=== PATIENT | female | born 1985 | race Caucasian/White ===

== ENCOUNTER 2017-12-05 22:28 | Inpatient (IN) | payer MEDICAID ==
[2017-12-05] MEDS ORDERED: Mineral Oil 10 ML Bottle ONE (22:39)
[2017-12-05] MEDS ORDERED: Naloxone 0.4 MG/ML SDV ONE (22:40)
[2017-12-05] MEDS ORDERED: Lidocaine 1% 50 ML MDV ONE (22:40)
[2017-12-05] MEDS ORDERED: Oxytocin 10 Units/1 ML SDV ONE (22:51)
[2017-12-05] MEDS ORDERED: Ondansetron 4 MG Tab.DIS PO PRN (23:03)
[2017-12-05] MEDS ORDERED: Sodium Chloride 0.9% 10 ML Syringe FLUSH PRN (23:03)
--- NOTE | 2017-12-05 23:13 | PCM.LDHP ---
L&D History of Present Illness - General Date of Service: 12/05/17 (active labor) Admit Problem/Dx: Patient Status Order with Admit Dx/Problem 12/05/17 23:03 Patient Status [ADT] Routine Admission Diagnosis/Problem Admission Diagnosis/Problem Labor established Source of Information: Patient History Limitations: Reports: No Limitations - History of Present Illness Introduction:: This 32 year old AB 1 L 2 who is 39 5/7 weeks gestation presents for contractions that are regular and intense. Onset at 2012 and getting stronger. Wants a drug free delivery. Had GBS pos with last , Negative this time. OCTAVIO 12/07/17. adequate care. CE 80/+2 no leaking of fluid. Labs ABO AB pos Rubella immune HIV neg GBS neg. Timing/Duration: Reports: minutes: (3) Location, : Reports: Abdomen, Lower back Quality: Reports: Pressure Severity: Severe Improves with: Reports: Movement Worsens with: Reports: None - Related Data Allergies/Adverse Reactions: Allergies Allergy/AdvReac Type Severity Reaction Status Date / Time No Known Allergies Allergy Verified 06/14/15 22:12 Past Medical History - Past Health History Medical/Surgical History: Denies Medical/Surgical History : 5 Para: 3 (2 living children) LMP (Approximate): (OCTAVIO 12/07/17) H&P Review of Systems - Review of Systems: Review Of Systems: See Below General: Reports: No Symptoms HEENT: Reports: No Symptoms Pulmonary: Reports: No Symptoms Cardiovascular: Reports: No Symptoms Gastrointestinal: Reports: No Symptoms Genitourinary: Reports: No Symptoms Musculoskeletal: Reports: No Symptoms Skin: Reports: No Symptoms Psychiatric: Reports: No Symptoms Neurological: Reports: No Symptoms Hematologic/Lymphatic: Reports: No Symptoms Immunologic: Reports: No Symptoms L&D Exam - Exam Exam: See Below - Vital Signs Vital Signs: Last Vital Signs Temp 97.1 F 12/05/17 22:52 Pulse 102 H 12/05/17 22:52 Resp 98 H 12/05/17 22:52 BP 103/76 12/05/17 22:52 Pulse Ox - OB Specific Contraction Frequency (min): 2 Contraction Intensity: Strong Movement: Active Heart Tones: Present Heart Tones per Min: 125 Presentation: Vertex Estimated Weight: 7-8 pounds - Sanchez Score Sanchez Score Cervix Position: Midposition Sanchez Score Consistency: Soft Sancehz Score Effacement: >80% Sanchez Score Dilation: 3-4 cm Sanchez Score Infant's Station: +1, +2 Sanchez Score Total: 11 - Exam General: Alert, Oriented HEENT: PERRLA, Mucosa Moist & [place] Neck: Supple Lungs: Clear to Auscultation Cardiovascular: Regular Rhythm GI/Abdominal Exam: Soft Genitourinary: Normal external exam Back Exam: Normal Inspection Extremities: Normal Inspection, No Pedal Edema Skin: Warm Neurological: Cranial Nerves Intact Psychiatric: Alert - Patient Data Lab Results Last 24 hrs: Laboratory Results - last 24 hr 12/05/17 12/05/17 Range/Units 22:37 22:42 WBC 10.5 (4.5-11.0) K/uL RBC 3.87 (3.30-5.50) M/uL Hgb 12.0 (12.0-15.0) g/dL Hct 34.6 L (36.0-48.0) % MCV 89 (80-98) fL MCH 31 (27-31) pg MCHC 35 (32-36) % Plt Count 146 L (150-400) K/uL Neut % (Auto) 74 H (36-66) % Lymph % (Auto) 18 L (24-44) % [place] % (Auto) 8 H (2-6) % Eos % (Auto) 1 L (2-4) % Baso % (Auto) 0 (0-1) % Urine Opiates Screen Negative (NEGATIVE) Ur Oxycodone Screen Negative (NEGATIVE) Urine Methadone Screen Negative (NEGATIVE) Ur Propoxyphene Screen Negative (NEGATIVE) Ur Barbiturates Screen Negative (NEGATIVE) Ur Tricyclics Screen Negative (NEGATIVE) Ur Phencyclidine Scrn Negative (NEGATIVE) Ur Amphetamine Screen Negative (NEGATIVE) U Methamphetamines Scrn Negative (NEGATIVE) Urine MDMA Screen Negative (NEGATIVE) U Benzodiazepines Scrn Negative (NEGATIVE) U Cocaine Metab Screen Negative (NEGATIVE) U Marijuana (THC) Screen Negative (NEGATIVE) Result Diagrams: 12/05/17 22:37 - Problem List (1) SNOMED Code(s): 91074893 ICD Code: Z34.90 - ENCNTR FOR SUPRVSN OF NORMAL , UNSP, UNSP TRIMESTER Status: Acute Current Visit: Yes Qualifiers: Weeks of gestation: 39 weeks Qualified Code(s): Z3A.39 - 39 weeks gestation of (2) Active labor at term SNOMED Code(s): 98375316 ICD Code: [id number] - Status: Acute Current Visit: Yes Problem List Initiated/Reviewed/Updated: Yes Orders Last 24hrs: Active Orders 24 hr Category Date Time Status Patient Status [ADT] Routine ADT 12/05/17 23:03 Ordered Antiembolic Devices [RC] .Routine Care 12/05/17 23:06 Ordered Communication Order [RC] ASDIRECTED Care 12/05/17 23:03 Ordered Heart Tones [RC] PER UNIT ROUTINE Care 12/05/17 23:03 Ordered May Shower [RC] ASDIRECTED Care 12/05/17 23:03 Ordered Notify Provider Vital Signs [RC] PRN Care 12/05/17 23:03 Ordered Notify Provider [RC] PRN Care 12/05/17 23:03 Ordered Up ad Radha [RC] ASDIRECTED Care 12/05/17 23:03 Ordered VTE/DVT Education [RC] Click to Edit Care 12/05/17 23:06 Ordered Vital Signs [RC] PER UNIT ROUTINE Care 12/05/17 23:03 Ordered UA W/MICROSCOPIC [URIN] Routine Lab 12/05/17 22:42 Ordered Acetaminophen [Tylenol] Med 12/05/17 23:03 Ordered 650 mg PO Q4H PRN Ondansetron [Zofran ODT] Med 12/05/17 23:03 Ordered 4 mg PO Q4H PRN Sodium Chloride 0.9% [Saline Flush] Med 12/05/17 23:03 Ordered 10 ml FLUSH ASDIRECTED PRN DVT/VTE Prophylaxis Reflex [OM.PC] Routine Oth 12/05/17 23:03 Ordered Saline Lock Insert [OM.PC] Routine Oth 12/05/17 23:03 Ordered Resuscitation Status Routine Resus Stat 12/05/17 23:03 Ordered Assessment/Plan Comment:: 32 yr old AB 1 L2 who is 39 5/7 weeks gestation in active labor. pain management per patient request Plan for vaginal delivery. HGB 12 PLT 146
[2017-12-06] MEDS: Ibuprofen 800 MG Tab PO PRN ×3 (02:45→19:31)
--- NOTE | 2017-12-06 03:22 | PCM.DEL ---
L & D Note - General Info Date of Service: 12/06/17 (delivery) Mother's Due Date: 12/07/17 - Delivery Note Labor: Spontaneous Delivery Outcome: Livebirth Infant Delivery Method: Spontaneous Vaginal Delivery-Single Infant Delivery Mode: Spontaneous Presentation: Right Occiput Anterior (LARRY) Nuchal Cord: None Anesthesia Type: None Amniotic Fluid Description: Clear Episiotomy Type: None Laceration: Perineal (skild jere, she declined repair, not bleeding) Placenta: Intact, Spontaneous Cord: 3 Vessels Estimated Blood Loss: 100 Resuscitation Needed: No [place]: Bulb Syringe, Stimulated, Warmed, [place] Used Provider: Lizzy Morales Score 1 min: 8 Score 5 min: 9 Second Stage Interventions: Reports: Pushing Effectively Delivery Comments (Free Text/Narrative):: 12/06/17 32 year old G5 now P4 AB1 L3 who is 39 6/7 delivered at 0239 a viable female over an intact perineum in LARRY position. The was delivered onto mother's abdomen where she was dried and stimulated. She cried spontaneously and had Apgars of 8 and 9. Three vessel cord. The placenta was expressed spontaneously intact, [place]. There was a skid jere perineal abrasion which Sandrine chose not to have repaired, it wasn't bleeding. no other lacerations of the cervix, vagina or rectum were found. EBL 100 cc Mother and baby to post and nursery in stable condition. Weight 7 pounds, - General Info Date of Service: 12/06/17 Admission Dx/Problem (Free Text): Patient Status Order with Admit Dx/Problem 12/05/17 23:03 Patient Status [ADT] Routine Admission Diagnosis/Problem Admission Diagnosis/Problem Labor established Functional Status: Reports: Pain Controlled - Review of Systems General: Reports: No Symptoms HEENT: Reports: No Symptoms Pulmonary: Reports: No Symptoms Cardiovascular: Reports: No Symptoms Gastrointestinal: Reports: No Symptoms Genitourinary: Reports: No Symptoms Musculoskeletal: Reports: No Symptoms Skin: Reports: No Symptoms Neurological: Reports: No Symptoms Psychiatric: Reports: No Symptoms - Patient Data Vitals - Most Recent: Last Vital Signs Temp 97.1 F 12/05/17 22:52 Pulse 102 H 12/05/17 22:52 Resp 98 H 12/05/17 22:52 BP 103/76 12/05/17 22:52 Pulse Ox Lab Results Last 24 Hours: Laboratory Results - last 24 hr 12/05/17 12/05/17 12/05/17 Range/Units 22:37 22:42 22:42 WBC 10.5 (4.5-11.0) K/uL RBC 3.87 (3.30-5.50) M/uL Hgb 12.0 (12.0-15.0) g/dL Hct 34.6 L (36.0-48.0) % MCV 89 (80-98) fL MCH 31 (27-31) pg MCHC 35 (32-36) % Plt Count 146 L (150-400) K/uL Neut % (Auto) 74 H (36-66) % Lymph % (Auto) 18 L (24-44) % [place] % (Auto) 8 H (2-6) % Eos % (Auto) 1 L (2-4) % Baso % (Auto) 0 (0-1) % Urine Color Yellow Urine Appearance Slightly cloudy Urine pH 5.0 (4.5-8.0) Ur Specific [place] 1.030 (1.008-1.030) Urine Protein Negative (NEGATIVE) mg/dL Urine Glucose (UA) Normal (NEGATIVE) mg/dL Urine Ketones 50 H (NEGATIVE) mg/dL Urine Occult Blood Negative (NEGATIVE) Urine Nitrite Negative (NEGATIVE) Urine Bilirubin Negative (NEGATIVE) Urine Urobilinogen Normal (NORMAL) mg/dL Ur Leukocyte Esterase Negative (NEGATIVE) Urine RBC 0-5 (0-5) Urine WBC 0-5 (0-5) Ur Epithelial Cells Few Amorphous Sediment Urine Bacteria Moderate Urine Mucus Not seen Urine Opiates Screen Negative (NEGATIVE) Ur Oxycodone Screen Negative (NEGATIVE) Urine Methadone Screen Negative (NEGATIVE) Ur Propoxyphene Screen Negative (NEGATIVE) Ur Barbiturates Screen Negative (NEGATIVE) Ur Tricyclics Screen Negative (NEGATIVE) Ur Phencyclidine Scrn Negative (NEGATIVE) Ur Amphetamine Screen Negative (NEGATIVE) U Methamphetamines Scrn Negative (NEGATIVE) Urine MDMA Screen Negative (NEGATIVE) U Benzodiazepines Scrn Negative (NEGATIVE) U Cocaine Metab Screen Negative (NEGATIVE) U Marijuana (THC) Screen Negative (NEGATIVE) Med Orders - Current: Current Medications Acetaminophen (Tylenol) 650 mg PO Q4H PRN PRN Reason: Pain (Mild 1-3) and fever Ibuprofen (Motrin) 800 mg PO Q8H PRN PRN Reason: Pain Ondansetron HCl (Zofran Odt) 4 mg PO Q4H PRN PRN Reason: Nausea/Vomiting Sodium Chloride (Saline Flush) 10 ml FLUSH ASDIRECTED PRN PRN Reason: Keep Vein Open Discontinued Medications Oxytocin/Sodium Chloride (Pitocin In Ns 20 Units/1,000 Ml) Confirm Administered Dose 20 unit in 1,000 mls @ as directed .ROUTE .STK-MED ONE Stop: 12/05/17 22:41 Lidocaine HCl (Xylocaine 1%) Confirm Administered Dose 100 ml .ROUTE .STK-MED ONE Stop: 12/05/17 22:41 Mineral Oil (Muri-Lube) Confirm Administered Dose 10 ml .ROUTE .STK-MED ONE Stop: 12/05/17 22:40 Naloxone HCl (Narcan) Confirm Administered Dose 0.4 mg .ROUTE .STK-MED ONE Stop: 12/05/17 22:41 Oxytocin (Pitocin) Confirm Administered Dose 10 unit .ROUTE .STK-MED ONE Stop: 12/05/17 22:52 - Exam General: Alert, Oriented HEENT: Pupils Equal Neck: Supple Lungs: Clear to Auscultation, Normal Respiratory Effort Cardiovascular: Regular Rate GI/Abdominal Exam: Normal Bowel Sounds, Soft, Non-Tender (Female) Exam: Cervical Dilatation, Enlarged Uterus Extremities: Normal Inspection, No Pedal Edema Skin: Warm, Dry, Intact Neurological: No New Focal Deficit Psy/Mental Status: Alert, Normal Affect, Normal Mood - Problem List & Annotations (1) SNOMED Code(s): 01677948 Code(s): Z34.90 - ENCNTR FOR SUPRVSN OF NORMAL , UNSP, UNSP TRIMESTER Status: Acute Current Visit: Yes Qualifiers: Weeks of gestation: 39 weeks Qualified Code(s): Z3A.39 - 39 weeks gestation of (2) Active labor at term SNOMED Code(s): 91619615 Code(s): KWA7447 - Status: Acute Current Visit: Yes (3) Normal (single liveborn) SNOMED Code(s): 89704685 Code(s): Z38.2 - SINGLE LIVEBORN , UNSPECIFIED TO PLACE OF Status: Acute Current Visit: Yes (4) (infant) SNOMED Code(s): 908062989 Code(s): Z78.9 - OTHER SPECIFIED HEALTH STATUS Status: Acute Current Visit: Yes (5) Spontaneous vaginal delivery SNOMED Code(s): 13443832 Code(s): O80 - ENCOUNTER FOR FULL-TERM UNCOMPLICATED DELIVERY Status: Acute Current Visit: Yes - Problem List Review Problem List Initiated/Reviewed/Updated: Yes - My Orders Last 24 Hours: My Active Orders 12/05/17 23:03 Communication Order [RC] ASDIRECTED Heart Tones [RC] PER UNIT ROUTINE May Shower [RC] ASDIRECTED Notify Provider Vital Signs [RC] PRN Notify Provider [RC] PRN Up ad Radha [RC] ASDIRECTED Vital Signs [RC] PER UNIT ROUTINE Acetaminophen [Tylenol] 650 mg PO Q4H PRN Ondansetron [Zofran ODT] 4 mg PO Q4H PRN Sodium Chloride 0.9% [Saline Flush] 10 ml FLUSH ASDIRECTED PRN DVT/VTE Prophylaxis Reflex [OM.PC] Routine Saline Lock Insert [OM.PC] Routine Resuscitation Status Routine 12/05/17 23:06 Antiembolic Devices [RC] .Routine VTE/DVT Education [RC] Click to Edit 12/06/17 02:43 Ibuprofen [Motrin] 800 mg PO Q8H PRN 12/06/17 03:05 Assess Lochia [WOMSER] Per Unit Routine Assess Uterine Involution [WOMSER] Per Unit Routine 12/06/17 03:06 Patient Status [ADT] Routine Vital Signs [RC] PFP 12/06/17 03:07 Ice Therapy [OM.PC] Per Unit Routine Perineal Care [OM.PC] Per Unit Routine Peripheral IV Discontinue [OM.PC] Routine Sitz Bath [OM.PC] Per Unit Routine 12/06/17 05:11 CBC WITH AUTO DIFF [HEME] AM 12/06/17 Breakfast Regular Diet [DIET] - Assessment Assessment:: 12/06/17 32 year old AB1 L3 at 39 6/7 without complications Female - Plan Plan:: 32 yr old AB 1 L2 who is 39 5/7 weeks gestation in active labor. pain management per patient request Plan for vaginal delivery. HGB 12 PLT 146 12/06/17 Routine cares 24-48 hour stay support CBC in AM
[2017-12-06] MEDS ORDERED: Benzocaine 20% Top Spray 56 GM Bottle TOP PRN (07:35)
[2017-12-06] MEDS: Acetaminophen 325 MG Tab PO PRN ×2 (08:12→13:55)
--- NOTE | 2017-12-06 12:15 | PCM.PNPP ---
- General Info Date of Service: 12/06/17 Admission Dx/Problem (Free Text): Patient Status Order with Admit Dx/Problem 12/05/17 23:03 Patient Status [ADT] Routine Admission Diagnosis/Problem Admission Diagnosis/Problem Labor established Functional Status: Reports: Pain Controlled - Review of Systems General: Reports: No Symptoms HEENT: Reports: No Symptoms Pulmonary: Reports: No Symptoms Cardiovascular: Reports: No Symptoms Gastrointestinal: Reports: No Symptoms Genitourinary: Reports: No Symptoms Musculoskeletal: Reports: No Symptoms Skin: Reports: No Symptoms Neurological: Reports: No Symptoms Psychiatric: Reports: No Symptoms - Patient Data Vital Signs - Most Recent: Last Vital Signs Temp 96.7 F 12/06/17 11:32 Pulse 92 12/06/17 11:32 Resp 16 12/06/17 11:32 BP 95/64 12/06/17 11:32 Pulse Ox 98 12/06/17 11:32 Lab Results - Last 24 Hours: Laboratory Results - last 24 hr 12/05/17 12/05/17 12/05/17 Range/Units 22:37 22:42 22:42 WBC 10.5 (4.5-11.0) K/uL RBC 3.87 (3.30-5.50) M/uL Hgb 12.0 (12.0-15.0) g/dL Hct 34.6 L (36.0-48.0) % MCV 89 (80-98) fL MCH 31 (27-31) pg MCHC 35 (32-36) % Plt Count 146 L (150-400) K/uL Neut % (Auto) 74 H (36-66) % Lymph % (Auto) 18 L (24-44) % [place] % (Auto) 8 H (2-6) % Eos % (Auto) 1 L (2-4) % Baso % (Auto) 0 (0-1) % Urine Color Yellow Urine Appearance Slightly cloudy Urine pH 5.0 (4.5-8.0) Ur Specific [place] 1.030 (1.008-1.030) Urine Protein Negative (NEGATIVE) mg/dL Urine Glucose (UA) Normal (NEGATIVE) mg/dL Urine Ketones 50 H (NEGATIVE) mg/dL Urine Occult Blood Negative (NEGATIVE) Urine Nitrite Negative (NEGATIVE) Urine Bilirubin Negative (NEGATIVE) Urine Urobilinogen Normal (NORMAL) mg/dL Ur Leukocyte Esterase Negative (NEGATIVE) Urine RBC 0-5 (0-5) Urine WBC 0-5 (0-5) Ur Epithelial Cells Few Amorphous Sediment Urine Bacteria Moderate Urine Mucus Not seen Urine Opiates Screen Negative (NEGATIVE) Ur Oxycodone Screen Negative (NEGATIVE) Urine Methadone Screen Negative (NEGATIVE) Ur Propoxyphene Screen Negative (NEGATIVE) Ur Barbiturates Screen Negative (NEGATIVE) Ur Tricyclics Screen Negative (NEGATIVE) Ur Phencyclidine Scrn Negative (NEGATIVE) Ur Amphetamine Screen Negative (NEGATIVE) U Methamphetamines Scrn Negative (NEGATIVE) Urine MDMA Screen Negative (NEGATIVE) U Benzodiazepines Scrn Negative (NEGATIVE) U Cocaine Metab Screen Negative (NEGATIVE) U Marijuana (THC) Screen Negative (NEGATIVE) 12/06/17 Range/Units 04:42 WBC 14.9 H (4.5-11.0) K/uL RBC 4.14 (3.30-5.50) M/uL Hgb 12.8 (12.0-15.0) g/dL Hct 36.4 (36.0-48.0) % MCV 88 (80-98) fL MCH 31 (27-31) pg MCHC 35 (32-36) % Plt Count 205 (150-400) K/uL Neut % (Auto) 89 H (36-66) % Lymph % (Auto) 7 L (24-44) % [place] % (Auto) 3 (2-6) % Eos % (Auto) 0 L (2-4) % Baso % (Auto) 0 (0-1) % Urine Color Urine Appearance Urine pH (4.5-8.0) Ur Specific [place] (1.008-1.030) Urine Protein (NEGATIVE) mg/dL Urine Glucose (UA) (NEGATIVE) mg/dL Urine Ketones (NEGATIVE) mg/dL Urine Occult Blood (NEGATIVE) Urine Nitrite (NEGATIVE) Urine Bilirubin (NEGATIVE) Urine Urobilinogen (NORMAL) mg/dL Ur Leukocyte Esterase (NEGATIVE) Urine RBC (0-5) Urine WBC (0-5) Ur Epithelial Cells Amorphous Sediment Urine Bacteria Urine Mucus Urine Opiates Screen (NEGATIVE) Ur Oxycodone Screen (NEGATIVE) Urine Methadone Screen (NEGATIVE) Ur Propoxyphene Screen (NEGATIVE) Ur Barbiturates Screen (NEGATIVE) Ur Tricyclics Screen (NEGATIVE) Ur Phencyclidine Scrn (NEGATIVE) Ur Amphetamine Screen (NEGATIVE) U Methamphetamines Scrn (NEGATIVE) Urine MDMA Screen (NEGATIVE) U Benzodiazepines Scrn (NEGATIVE) U Cocaine Metab Screen (NEGATIVE) U Marijuana (THC) Screen (NEGATIVE) Med Orders - Current: Current Medications Acetaminophen (Tylenol) 650 mg PO Q4H PRN PRN Reason: Pain (Mild 1-3) and fever Last Admin: 12/06/17 08:12 Dose: 650 mg Benzocaine (Coph-B-Xcmozlj 20% Reader) 0 gm TOP ASDIRECTED PRN PRN Reason: Pain (moderate 4-6) Ibuprofen (Motrin) 800 mg PO Q8H PRN PRN Reason: Pain Last Admin: 12/06/17 11:26 Dose: 800 mg Ondansetron HCl (Zofran Odt) 4 mg PO Q4H PRN PRN Reason: Nausea/Vomiting Sodium Chloride (Saline Flush) 10 ml FLUSH ASDIRECTED PRN PRN Reason: Keep Vein Open Discontinued Medications Oxytocin/Sodium Chloride (Pitocin In Ns 20 Units/1,000 Ml) Confirm Administered Dose 20 unit in 1,000 mls @ as directed .ROUTE .STK-MED ONE Stop: 12/05/17 22:41 Last Admin: 12/06/17 04:06 Dose: Not Given Lidocaine HCl (Xylocaine 1%) Confirm Administered Dose 100 ml .ROUTE .STK-MED ONE Stop: 12/05/17 22:41 Last Admin: 12/06/17 04:07 Dose: Not Given Mineral Oil (Muri-Lube) Confirm Administered Dose 10 ml .ROUTE .STK-MED ONE Stop: 12/05/17 22:40 Last Admin: 12/06/17 04:06 Dose: Not Given Naloxone HCl (Narcan) Confirm Administered Dose 0.4 mg .ROUTE .STK-MED ONE Stop: 12/05/17 22:41 Last Admin: 12/06/17 04:06 Dose: Not Given Oxytocin (Pitocin) Confirm Administered Dose 10 unit .ROUTE .STK-MED ONE Stop: 12/05/17 22:52 Last Admin: 12/06/17 04:07 Dose: Not Given - Interaction Disposition, : in Room with Family Interaction: Holding Infant Feeding: Breastfed Infant; Nursed Well Support Person: - Recovery Exam Fundal Tone: Firm Fundal Level: 1 Fingerbreadths Below Umbilicus Fundal Placement: Midline Lochia Amount: Moderate Lochia Color: Rubra/Red Perineum Description: Intact, Minimal Bruising/Swelling Episiotomy/Laceration: None - Exam General: Alert, Oriented HEENT: Pupils Equal Neck: Supple Lungs: Clear to Auscultation, Normal Respiratory Effort Cardiovascular: Regular Rate, Regular Rhythm GI/Abdominal Exam: Normal Bowel Sounds, Soft, Non-Tender, No Organomegaly, No Distention, No Abnormal Bruit, No Mass, Pelvis Stable Extremities: Normal Inspection, Normal Range of Motion, Non-Tender, No Pedal Edema, Normal Capillary Refill Skin: Warm, Dry, Intact Wound/Incisions: Healing Well Neurological: No New Focal Deficit Psy/Mental Status: Alert, Normal Affect, Normal Mood - Problem List & Annotations (1) SNOMED Code(s): 94896884 Code(s): Z34.90 - ENCNTR FOR SUPRVSN OF NORMAL , UNSP, UNSP TRIMESTER Status: Acute Current Visit: Yes Qualifiers: Weeks of gestation: 39 weeks Qualified Code(s): Z3A.39 - 39 weeks gestation of (2) Active labor at term SNOMED Code(s): 69026329 Code(s): YMU2886 - Status: Acute Current Visit: Yes (3) Normal (single liveborn) SNOMED Code(s): 30581296 Code(s): Z38.2 - SINGLE LIVEBORN INFANT, UNSPECIFIED TO PLACE OF Status: Acute Current Visit: Yes (4) () SNOMED Code(s): 942388202 Code(s): Z78.9 - OTHER SPECIFIED HEALTH STATUS Status: Acute Current Visit: Yes (5) Spontaneous vaginal delivery SNOMED Code(s): 46160345 Code(s): O80 - ENCOUNTER FOR FULL-TERM UNCOMPLICATED DELIVERY Status: Acute Current Visit: Yes - Problem List Review Problem List Initiated/Reviewed/Updated: Yes - My Orders Last 24 Hours: My Active Orders 12/05/17 23:03 Communication Order [RC] ASDIRECTED May Shower [RC] ASDIRECTED Notify Provider Vital Signs [RC] PRN Notify Provider [RC] PRN Up ad Radha [RC] ASDIRECTED Vital Signs [RC] PER UNIT ROUTINE Acetaminophen [Tylenol] 650 mg PO Q4H PRN Ondansetron [Zofran ODT] 4 mg PO Q4H PRN Sodium Chloride 0.9% [Saline Flush] 10 ml FLUSH ASDIRECTED PRN DVT/VTE Prophylaxis Reflex [OM.PC] Routine Saline Lock Insert [OM.PC] Routine Resuscitation Status Routine 12/05/17 23:06 Antiembolic Devices [RC] .Routine VTE/DVT Education [RC] Click to Edit 12/06/17 02:43 Ibuprofen [Motrin] 800 mg PO Q8H PRN 12/06/17 03:05 Assess Lochia [WOMSER] Per Unit Routine Assess Uterine Involution [WOMSER] Per Unit Routine 12/06/17 03:06 Patient Status [ADT] Routine 12/06/17 03:07 Ice Therapy [OM.PC] Per Unit Routine Perineal Care [OM.PC] Per Unit Routine Peripheral IV Discontinue [OM.PC] Routine Sitz Bath [OM.PC] Per Unit Routine 12/06/17 07:35 Benzocaine [Qast-P-Zcqqmrn 20% Reader] 0 gm TOP ASDIRECTED PRN 12/06/17 Breakfast Regular Diet [DIET] - Assessment Assessment:: 12/06/17 32 year old AB1 L3 at 39 6/7 without complications Female 12/06/17 HGB after delivery 12.8 Not bleeding and feeling well Baby latching woithout difficult - Plan Plan:: 32 yr old AB 1 L2 who is 39 5/7 weeks gestation in active labor. pain management per patient request Plan for vaginal delivery. HGB 12 PLT 146 12/06/17 Routine cares 24-48 hour stay support CBC in AM 12/06/17 Will stay until tomorrow morning
[2017-12-06] MEDS ORDERED: Lanolin 100% Cream 40 GM Tube TOP PRN (16:52)
[2017-12-07] MEDS: Ibuprofen 800 MG Tab PO PRN (04:51)
--- NOTE | 2017-12-07 08:19 | PCM.PNPP ---
- General Info Date of Service: 12/07/17 Admission Dx/Problem (Free Text): Patient Status Order with Admit Dx/Problem 12/05/17 23:03 Patient Status [ADT] Routine Admission Diagnosis/Problem Admission Diagnosis/Problem Labor established Functional Status: Reports: Pain Controlled - Review of Systems General: Reports: No Symptoms HEENT: Reports: No Symptoms Pulmonary: Reports: No Symptoms Cardiovascular: Reports: No Symptoms Gastrointestinal: Reports: No Symptoms Genitourinary: Reports: No Symptoms Musculoskeletal: Reports: No Symptoms Skin: Reports: No Symptoms Neurological: Reports: No Symptoms Psychiatric: Reports: No Symptoms - General Info Date of Service: 12/07/17 - Patient Data Vital Signs - Most Recent: Last Vital Signs Temp 34.8 C L 12/07/17 04:51 Pulse 78 12/07/17 04:51 Resp 16 12/07/17 04:51 BP 105/67 12/07/17 04:51 Pulse Ox 98 12/07/17 04:51 Weight - Most Recent: 62.142 kg Med Orders - Current: Current Medications Acetaminophen (Tylenol) 650 mg PO Q4H PRN PRN Reason: Pain (Mild 1-3) and fever Last Admin: 12/06/17 13:55 Dose: 650 mg Benzocaine (Gksj-B-Rznrdmn 20% [place]) 0 gm TOP ASDIRECTED PRN PRN Reason: Pain (moderate 4-6) Emollient Ointment (Lansinoh Hpa) 40 gm TOP ASDIRECTED PRN PRN Reason: sore nipples Last Admin: 12/06/17 17:53 Dose: 1 applic Ibuprofen (Motrin) 800 mg PO Q8H PRN PRN Reason: Pain Last Admin: 12/07/17 04:51 Dose: 800 mg Ondansetron HCl (Zofran Odt) 4 mg PO Q4H PRN PRN Reason: Nausea/Vomiting Sodium Chloride (Saline Flush) 10 ml FLUSH ASDIRECTED PRN PRN Reason: Keep Vein Open Discontinued Medications Oxytocin/Sodium Chloride (Pitocin In Ns 20 Units/1,000 Ml) Confirm Administered Dose 20 unit in 1,000 mls @ as directed .ROUTE .STK-MED ONE Stop: 12/05/17 22:41 Last Admin: 12/06/17 04:06 Dose: Not Given Lidocaine HCl (Xylocaine 1%) Confirm Administered Dose 100 ml .ROUTE .STK-MED ONE Stop: 12/05/17 22:41 Last Admin: 12/06/17 04:07 Dose: Not Given Mineral Oil (Muri-Lube) Confirm Administered Dose 10 ml .ROUTE .STK-MED ONE Stop: 12/05/17 22:40 Last Admin: 12/06/17 04:06 Dose: Not Given Naloxone HCl (Narcan) Confirm Administered Dose 0.4 mg .ROUTE .STK-MED ONE Stop: 12/05/17 22:41 Last Admin: 12/06/17 04:06 Dose: Not Given Oxytocin (Pitocin) Confirm Administered Dose 10 unit .ROUTE .STK-MED ONE Stop: 12/05/17 22:52 Last Admin: 12/06/17 04:07 Dose: Not Given - Infant Interaction Disposition, : in Room with Family Infant Interaction: Holding Infant Feeding: Breastfed ; Nursed Well Support Person: - Recovery Exam Fundal Tone: Firm Fundal Level: 1 Fingerbreadths Below Umbilicus Fundal Placement: Midline Lochia Amount: Small Lochia Color: Rubra/Red Perineum Description: Other (see below) Other Perinuem Description: DEJAN- pt managing on her own Episiotomy/Laceration: None Bladder Status: Nonpalpable Urinary Elimination: Voided - Exam General: Alert, Oriented HEENT: Pupils Equal Neck: Supple Lungs: Clear to Auscultation, Normal Respiratory Effort Cardiovascular: Regular Rate, Regular Rhythm GI/Abdominal Exam: Normal Bowel Sounds, Soft, Non-Tender, No Organomegaly, No Distention, No Abnormal Bruit, No Mass, Pelvis Stable Extremities: Normal Inspection, Normal Range of Motion, Non-Tender, No Pedal Edema, Normal Capillary Refill Skin: Warm, Dry, Intact Neurological: No New Focal Deficit Psy/Mental Status: Alert, Normal Affect, Normal Mood - Problem List & Annotations (1) () SNOMED Code(s): 248402417 Code(s): Z78.9 - OTHER SPECIFIED HEALTH STATUS Status: Acute Current Visit: Yes (2) Spontaneous vaginal delivery SNOMED Code(s): 33264462 Code(s): O80 - ENCOUNTER FOR FULL-TERM UNCOMPLICATED DELIVERY Status: Acute Current Visit: Yes - Problem List Review Problem List Initiated/Reviewed/Updated: Yes - Assessment Assessment:: 12/06/17 32 year old AB1 L3 at 39 6/7 without complications Female 12/06/17 HGB after delivery 12.8 Not bleeding and feeling well Baby latching woithout difficult 12/07/2017 day Fundus firm and bleeding decreasing well Home today - Plan Plan:: 32 yr old AB 1 L2 who is 39 5/7 weeks gestation in active labor. pain management per patient request Plan for vaginal delivery. HGB 12 PLT 146 12/06/17 Routine cares 24-48 hour stay support CBC in AM 12/06/17 Will stay until tomorrow morning 12/07/2017 Continue Routine Cares Continue to support and encourage To see Lizzy in 6 weeks for visit Home today
[2017-12-07 11:04] VITALS: BP 104/65
== END 2017-12-07 10:42 | disposition home or self-care (01) | DRG 775 ==
LOC: JP.OBCHECK 22:28 → JP.OB 22:40 → OBSVTOIN 12-06 02:39 → JP.MS 12-06 05:32
PROVIDERS: ADMIT Nurse Practitioner Family; ATTEND Nurse Practitioner Family
PROC: 10E0XZZ Delivery of Products of Conception, External Approach (ICD-10-PCS; principal; 2017-12-06)
DX: O80 Encounter for full-term uncomplicated delivery (principal); Z3A.39 39 weeks gestation of pregnancy; Z37.0 Single live birth
CPT/HCPCS: 36415; 59409; 80305; 81001; 85025; A9270-GY

== ENCOUNTER 2017-12-10 17:20 | Emergency (ER) | payer MEDICAID ==
[2017-12-10 17:58] VITALS: BP 120/79
--- NOTE | 2017-12-10 18:50 | EDM.PDOC ---
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 She delivered her baby 4 days ago. This is her 4th child. Onset: Other (pt noticed a bulge in the vag inal area. ) Duration: Hour(s):, Other ( This went away after she was sitting on the tolet. ) Location: Reports: Other ( vaginal area. 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 ) Musculoskeletal: Reports: No Symptoms Skin: Reports: No Symptoms ED EXAM, GI/ABD - Physical Exam Exam: See Below Text/Narrative:: Pt is fresh from delivery and she is reluctant to have any sig exam. Exam Limited By: No Limitations General Appearance: Alert, No Apparent Distress Ears: Normal TMs Nose: Normal Inspection (Female) Exam: Other ( The pt has a small tear which is healing nicely. She is not bleeding heavily. When she does bear down she has alot of redundant tissue that comes down in the vag opening. The cervix is not visible, She did not want either a jordan speculum exam or manual exam. I do not think there is a urgent problem and that this will tighten up. She will follow up with Aleah Morales) Extremities: Normal Inspection Course - Vital Signs Last Recorded V/S: Last Vital Signs Temp 36.6 C 12/10/17 18:03 Pulse 83 12/10/17 18:03 Resp 14 12/10/17 18:03 BP 120/79 12/10/17 18:03 Pulse Ox 100 12/10/17 18:03 Departure - Departure Time of Disposition: 18:46 Disposition: Home, Self-Care 01 Condition: Fair Clinical Impression: Bulge in groin area - Discharge Information Referrals: Lizzy Morales CNM [Primary Care Provider] - Forms: ED Department Discharge Care Plan Goals: relaxed vaginal tissue, avoid being on her feet for prolonged periods of time m lie down with legs up. If persistent symptoms check with Aleah Morales.
== END 2017-12-10 19:15 | disposition home or self-care (01) ==
LOC: JP.ED 17:20
DX: O90.89 Other complications of the puerperium, not elsewhere classified (principal); N89.8 Other specified noninflammatory disorders of vagina
CPT/HCPCS: 99283

== ENCOUNTER 2020-02-17 07:04 | Inpatient (IN) | payer MEDICAID ==
[2020-02-17] MEDS ORDERED: Misoprostol 50 MCG (1/2 of 100 MCG) Tab VAG ONE (07:27)
[2020-02-17] MEDS ORDERED: Sodium Chloride 0.9% 10 ML Syringe FLUSH PRN (08:03)
[2020-02-17] MEDS ORDERED: fentaNYL 100 MCG/2 ML SDV IVPUSH PRN (08:03)
--- NOTE | 2020-02-17 08:18 | PCM.LDHP ---
L&D History of Present Illness - General Date of Service: 02/17/20 (Induction) Admit Problem/Dx: Patient Status Order with Admit Dx/Problem 02/17/20 08:04 Patient Status [ADT] Routine Admission Diagnosis/Problem Admission Diagnosis/Problem Source of Information: Patient History Limitations: Reports: No Limitations - History of Present Illness Introduction:: This 35 year old who is 39 weeks gestation. Presents for induction due to Covid risks and worry. Her cervix is ripe and she has been having contractions although not regularly. , her first child a boy shortly after . Reactive NST CE: 2-3/80/0 posterior Labs: ABO AB pos, Rub Immune, HIV neg, GBS neg, Timing/Duration: Reports: intermittent Location, : Reports: Abdomen Quality: Reports: Pressure Severity: Mild Improves with: Reports: None Worsens with: Reports: None - Related Data Allergies/Adverse Reactions: Allergies Allergy/AdvReac Type Severity Reaction Status Date / Time No Known Allergies Allergy Verified 12/10/17 18:03 Home Medications: Home Meds Cod Liver Oil 1 dose PO DAILY 12/10/17 [History] Lactobacillus Acidophilus [Probiotic] 1 tab PO DAILY 12/10/17 [History] Vits #93/Iron Fum/FA [ Formula Tablet] 1 tab PO DAILY 12/10/17 [History] Vitamin D3/Vitamin K2 (Mk4) [K2 Plus D3 Tablet] 1 tab PO DAILY 12/10/17 [History ] Past Medical History - Past Health History Medical/Surgical History: Denies 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, : 6 Para: 3 LMP (Approximate): (OCTAVIO 02/23/20) Musculoskeletal History: Reports: Other (See Below) Other Musculoskeletal History: chronic right hip pain Social & Family History - Caffeine Use Caffeine Use: Reports: None H&P Review of Systems - Review of Systems: Review Of Systems: See Below General: Reports: No Symptoms HEENT: Reports: No Symptoms Pulmonary: Reports: No Symptoms Cardiovascular: Reports: No Symptoms Gastrointestinal: Reports: No Symptoms Genitourinary: Reports: No Symptoms Musculoskeletal: Reports: No Symptoms Skin: Reports: No Symptoms Psychiatric: Reports: No Symptoms Neurological: Reports: No Symptoms Hematologic/Lymphatic: Reports: No Symptoms Immunologic: Reports: No Symptoms L&D Exam - Exam Exam: See Below - Vital Signs Weight: 136 lb 10.986 oz - OB Specific Contraction Intensity: Mild Movement: Active Heart Tones: Present Heart Rate (FHR) Variability: Moderate (6-25 bmp) Presentation: Vertex - Sanchez Score Sanchez Score Cervix Position: Posterior Sanchez Score Consistency: Soft Sanchez Score Effacement: >80% Sanchez Score Dilation: 1-2 cm Sanchez Score 's Station: -1 ,0 Sanchez Score Total: 8 - Exam General: Alert, Oriented HEENT: PERRLA Neck: Supple Lungs: Clear to Auscultation, Normal Respiratory Effort Cardiovascular: Regular Rate, Regular Rhythm Rectal Exam: Normal Exam Genitourinary: Normal external exam, Enlarged uterus Back Exam: Normal Inspection Extremities: No Pedal Edema, Normal Capillary Refill Skin: Warm, Dry Psychiatric: Alert, Normal Affect, Normal Mood - Patient Data Lab Results Last 24 hrs: Laboratory Results - last 24 hr 02/17/20 02/17/20 02/17/20 Range/Units 07:14 07:14 07:33 WBC 8.4 (4.5-11.0) K/uL RBC 4.27 (3.30-5.50) M/uL Hgb 12.6 (12.0-15.0) g/dL Hct 37.6 (36.0-48.0) % MCV 88 (80-98) fL MCH 30 (27-31) pg MCHC 34 (32-36) % Plt Count 204 (150-400) K/uL Neut % (Auto) 70 H (36-66) % Lymph % (Auto) 21 L (24-44) % Cross % (Auto) 8 H (2-6) % Eos % (Auto) 1 L (2-4) % Baso % (Auto) 1 (0-1) % Urine Color Yellow (YELLOW) Urine Appearance Clear (CLEAR) Urine pH 6.0 (5.0-8.0) Ur Specific [place] >= 1.030 (1.008-1.030) Urine Protein Negative (NEGATIVE) mg/dL Urine Glucose (UA) Negative (NEGATIVE) mg/dL Urine Ketones >=160 H (NEGATIVE) mg/dL Urine Occult Blood Negative (NEGATIVE) Urine Nitrite Negative (NEGATIVE) Urine Bilirubin Negative (NEGATIVE) Urine Urobilinogen 0.2 (0.2-1.0) EU/dL Ur Leukocyte Esterase Negative (NEGATIVE) Urine WBC 0-5 (0-5) Ur Epithelial Cells Moderate Urine Bacteria Rare Urine Mucus Moderate Urine Opiates Screen Negative (NEGATIVE) Ur Oxycodone Screen Negative (NEGATIVE) Urine Methadone Screen Negative (NEGATIVE) Ur Propoxyphene Screen Negative (NEGATIVE) Ur Barbiturates Screen Negative (NEGATIVE) Ur Tricyclics Screen Negative (NEGATIVE) Ur Phencyclidine Scrn Negative (NEGATIVE) Ur Amphetamine Screen Negative (NEGATIVE) U Methamphetamines Scrn Negative (NEGATIVE) Urine MDMA Screen Negative (NEGATIVE) U Benzodiazepines Scrn Negative (NEGATIVE) U Cocaine Metab Screen Negative (NEGATIVE) U Marijuana (THC) Screen Negative (NEGATIVE) Result Diagrams: 02/17/20 07:33 - Problem List (1) Elective induction of labor planned SNOMED Code(s): 903676286 ICD Code: [id number] - Status: Acute Current Visit: Yes Problem List Initiated/Reviewed/Updated: Yes Orders Last 24hrs: Active Orders 24 hr Category Date Time Status Patient Status [ADT] Routine ADT 02/17/20 08:04 Ordered Antiembolic Devices [RC] .Routine Care 02/17/20 08:06 Ordered Communication Order [RC] ASDIRECTED Care 02/17/20 08:04 Ordered Heart Tones [RC] PER UNIT ROUTINE Care 02/17/20 08:04 Ordered Non Stress Test [RC] Click to Edit Care 02/17/20 08:04 Ordered Notify Provider Vital Signs [RC] PRN Care 02/17/20 08:03 Ordered Notify Provider [RC] PRN Care 02/17/20 08:04 Ordered Up ad Radha [RC] ASDIRECTED Care 02/17/20 08:03 Ordered VTE/DVT Education [RC] Click to Edit Care 02/17/20 08:06 Ordered Vital Signs [RC] PER UNIT ROUTINE Care 02/17/20 08:04 Ordered UA W/MICROSCOPIC [URIN] Routine Lab 02/17/20 07:14 Results Sodium Chloride 0.9% [Saline Flush] Med 02/17/20 08:03 Ordered 10 ml FLUSH ASDIRECTED PRN fentaNYL [Sublimaze] Med 02/17/20 08:03 Ordered 100 mcg IVPUSH Q1H PRN DVT/VTE Prophylaxis Reflex [OM.PC] Routine Oth 02/17/20 08:03 Ordered Saline Lock Insert [OM.PC] Routine Oth 02/17/20 08:04 Ordered Resuscitation Status Routine Resus Stat 02/17/20 08:03 Ordered Medication Orders Fentanyl (Sublimaze) 100 mcg IVPUSH Q1H PRN PRN Reason: Pain (moderate 4-6) Sodium Chloride (Saline Flush) 10 ml FLUSH ASDIRECTED PRN PRN Reason: Keep Vein Open Assessment/Plan Comment:: 02/17/20 Term , request for induction, ripe cervix, 39 weeks 2-3/80-0, bishops score 8 reactive nst Plan Miso 50 mcg vaginally this morning AROM when able pain management per patient request monitor for active labor Plan for vaginal delivery
--- NOTE | 2020-02-17 12:41 | PCM.PNLD ---
Labor Progress Note - VS & Meds Vital Signs: Last Vital Signs Temp 97.5 F 02/17/20 09:44 Pulse 97 02/17/20 09:44 Resp 16 02/17/20 09:44 BP 100/56 L 02/17/20 09:44 Pulse Ox 98 02/17/20 09:44 Active Medications: Current Medications Fentanyl (Sublimaze) 100 mcg IVPUSH Q1H PRN PRN Reason: Pain (moderate 4-6) Sodium Chloride (Saline Flush) 10 ml FLUSH ASDIRECTED PRN PRN Reason: Keep Vein Open Discontinued Medications Misoprostol (Cytotec) 50 mcg VAG ONETIME ONE Stop: 02/17/20 07:28 Last Admin: 02/17/20 07:55 Dose: 50 mcg - Uterine Contractions Uterine Monitoring Mode: External [place] Contraction Frequency (min): 1-2.5 Contraction Duration (sec): 50-60 Contraction Intensity: Mild to Moderate Uterine Resting Tone: Soft - Monitoring Monitor Mode: Doppler/Auscultation Heart Rate (FHR) Variability: Moderate (6-25 bmp) Strip Review: Category I - Vaginal Exam Dilation (cm): 2 Effacement (Percent): 75 Cervical Position: Posterior Sterile Vaginal Exam Performed By: Lizzy Morales Vaginal Exam Comment: I didn't check her as her pubic pain is so great. will get an epidural first - Labor Progress (Free Text) Labor Progress: Has a nice contraction pattern. Contractions are getting stronger. Was in the tub for about 30 minutes. currently resting on her side.
[2020-02-17] MEDS ORDERED: Lactated Ringers 1,000 ML IV ONE (12:43)
[2020-02-17] MEDS ORDERED: ePHEDrine 50 MG/ML SDV IVPUSH PRN (12:43)
[2020-02-17] MEDS ORDERED: Sodium Chloride 0.9% 1,000 ML IV ONE (12:45)
[2020-02-17] MEDS ORDERED: Acetaminophen 325 MG Tab, 50 Tab Bulk Bottle PO PRN (14:05)
[2020-02-17] MEDS ORDERED: Ibuprofen 200 MG Tab, 24 Tab Bulk Bottle PO PRN (14:05)
--- NOTE | 2020-02-17 14:15 | PCM.DEL ---
L & D Note - General Info Date of Service: 02/17/20 (Childbirth) Mother's Due Date: 02/23/20 - Delivery Note Labor: Spontaneous Cervical Ripening Method: Misoprostil Delivery Outcome: Livebirth Delivery Method: Spontaneous Vaginal Delivery-Single Infant Delivery Mode: Spontaneous Presentation: Vertex Nuchal Cord: None Anesthesia Type: None Amniotic Fluid Description: Clear Episiotomy Type: None Laceration: None Placenta: Intact, Spontaneous Cord: 3 Vessels Estimated Blood Loss: 100 Resuscitation Needed: No [place]: Stimulated, Warmed, [place] Used Provider: Lizzy Morales Score 1 min: 10 Score 5 min: 10 Second Stage Interventions: Reports: Pushing Effectively, Pushing, Left Side Delivery Comments (Free Text/Narrative):: 02/17/20 This 35 year old who is 39 1/7 weeks delivered via at 1333 over an intact perineum a viable female infant lying on her left side with her legs together, babe in NICOLE position. The was delivered into my arms and she cried spontaneously. She was dfirst stage ried off and placed on mother's chest. The cord was double clamped and cut. Three vessel cord, Apgars 10, 10. The placenta was expressed spontaneously intact. No lacerations were found of the perineum, vagina, rectum or cervix. EBl less then 100cc Mother and baby to post in stable condition. First stage 0297-7752 Second stage 8184-9239 Third stage 5441-7294 Induction Criteria - Sanchez Score Sanchez Score Dilation: 1-2 cm Sanchez Score Effacement: >80% Sanchez Score 's Station: -1 ,0 Sanchez Score Consistency: Soft Sanchez Score Cervix Position: Posterior Sanchez Score Total: 8 Sanchez Score Presenting Part: Reports: Cephalic - Induction Gestational Age >/= 39 wks: Yes Estimated Pelvis: Reports: Adequate Reassuring Monitoring Strip: Yes Absence of Tachy Systole: Yes - General Info Date of Service: 02/17/20 Functional Status: Reports: Pain Controlled - Review of Systems General: Reports: No Symptoms HEENT: Reports: No Symptoms Pulmonary: Reports: No Symptoms Cardiovascular: Reports: No Symptoms Gastrointestinal: Reports: No Symptoms Genitourinary: Reports: No Symptoms Musculoskeletal: Reports: Other (severe pubic pain) Skin: Reports: No Symptoms Neurological: Reports: No Symptoms Psychiatric: Reports: No Symptoms - Patient Data Vitals - Most Recent: Last Vital Signs Temp 97.5 F 02/17/20 09:44 Pulse 101 H 02/17/20 12:19 Resp 16 02/17/20 12:19 BP 97/70 02/17/20 12:19 Pulse Ox 97 02/17/20 12:19 Weight - Most Recent: 136 lb I&O - Last 24 Hours: Intake & Output 02/16/20 02/17/20 02/17/20 22:59 06:59 14:59 Intake Total 2200 Balance 2200 Lab Results Last 24 Hours: Laboratory Results - last 24 hr 02/17/20 02/17/20 02/17/20 Range/Units 07:14 07:14 07:33 WBC 8.4 (4.5-11.0) K/uL RBC 4.27 (3.30-5.50) M/uL Hgb 12.6 (12.0-15.0) g/dL Hct 37.6 (36.0-48.0) % MCV 88 (80-98) fL MCH 30 (27-31) pg MCHC 34 (32-36) % Plt Count 204 (150-400) K/uL Neut % (Auto) 70 H (36-66) % Lymph % (Auto) 21 L (24-44) % [place] % (Auto) 8 H (2-6) % Eos % (Auto) 1 L (2-4) % Baso % (Auto) 1 (0-1) % Urine Color Yellow (YELLOW) Urine Appearance Clear (CLEAR) Urine pH 6.0 (5.0-8.0) Ur Specific [place] >= 1.030 (1.008-1.030) Urine Protein Negative (NEGATIVE) mg/dL Urine Glucose (UA) Negative (NEGATIVE) mg/dL Urine Ketones >=160 H (NEGATIVE) mg/dL Urine Occult Blood Negative (NEGATIVE) Urine Nitrite Negative (NEGATIVE) Urine Bilirubin Negative (NEGATIVE) Urine Urobilinogen 0.2 (0.2-1.0) EU/dL Ur Leukocyte Esterase Negative (NEGATIVE) Urine RBC Not seen (0-5) Urine WBC 0-5 (0-5) Ur Epithelial Cells Moderate Urine Bacteria Rare Urine Mucus Moderate Urine Opiates Screen Negative (NEGATIVE) Ur Oxycodone Screen Negative (NEGATIVE) Urine Methadone Screen Negative (NEGATIVE) Ur Propoxyphene Screen Negative (NEGATIVE) Ur Barbiturates Screen Negative (NEGATIVE) Ur Tricyclics Screen Negative (NEGATIVE) Ur Phencyclidine Scrn Negative (NEGATIVE) Ur Amphetamine Screen Negative (NEGATIVE) U Methamphetamines Scrn Negative (NEGATIVE) Urine MDMA Screen Negative (NEGATIVE) U Benzodiazepines Scrn Negative (NEGATIVE) U Cocaine Metab Screen Negative (NEGATIVE) U Marijuana (THC) Screen Negative (NEGATIVE) Med Orders - Current: Current Medications Acetaminophen (Tylenol Bulk Bottle) 0 mg PO Q4H PRN PRN Reason: Pain Benzocaine (Mgfr-B-Wpmudbx 20% [place]) 0 gm TOP Q4H ONE Stop: 02/17/20 13:59 Emollient Ointment (Lansinoh Hpa) 1 gm TOP ASDIRECTED ONE Stop: 02/17/20 13:59 Ephedrine Sulfate (Ephedrine Sulfate) 10 mg IVPUSH ASDIRECTED PRN PRN Reason: Hypotension Fentanyl (Sublimaze) 100 mcg IVPUSH Q1H PRN PRN Reason: Pain (moderate 4-6) Ibuprofen (Motrin Bulk Bottle) 600 mg PO Q6H PRN PRN Reason: Pain Sodium Chloride (Saline Flush) 10 ml FLUSH ASDIRECTED PRN PRN Reason: Keep Vein Open [place] Cuevasel (Tucks) 1 pad TOP ASDIRECTED ONE Stop: 02/17/20 13:59 Discontinued Medications Oxytocin/Sodium Chloride (Pitocin In Ns 20 Units/1,000 Ml) 20 unit in 1,000 mls @ 999 mls/hr IV ASDIRECTED ONE; Protocol Stop: 02/17/20 13:39 Lactated Ringer's (Ringers, Lactated) 1,000 mls @ 999 mls/hr IV .BOLUS ONE Stop: 02/17/20 13:43 Last Admin: 02/17/20 13:22 Dose: 999 mls/hr Oxytocin/Sodium Chloride (Pitocin In Ns 20 Units/1,000 Ml) Confirm Administered Dose 20 unit in 1,000 mls @ as directed .ROUTE .STK-MED ONE Stop: 02/17/20 12:49 Sodium Chloride (Normal Saline) 1,000 mls @ 999 mls/hr IV ASDIRECTED ONE Stop: 02/17/20 13:45 Last Admin: 02/17/20 12:30 Dose: 999 mls/hr Misoprostol (Cytotec) 50 mcg VAG ONETIME ONE Stop: 02/17/20 07:28 Last Admin: 02/17/20 07:55 Dose: 50 mcg - Exam General: Alert, Oriented HEENT: Pupils Equal, Pupils Reactive Neck: Supple Lungs: Normal Respiratory Effort Cardiovascular: Regular Rate, Regular Rhythm GI/Abdominal Exam: Soft, Non-Tender (Female) Exam: Cervical Dilatation, Enlarged Uterus, Vaginal Bleeding Back Exam: Normal Inspection Extremities: No Pedal Edema, Normal Capillary Refill Skin: Warm, Dry, Intact Neurological: No New Focal Deficit Psy/Mental Status: Alert, Normal Affect, Normal Mood - Problem List & Annotations (1) Elective induction of labor planned SNOMED Code(s): 362163896 Code(s): ZHS9409 - Status: Acute Current Visit: Yes (2) Normal (single liveborn) SNOMED Code(s): 653467244, 316316216, 803185299 Code(s): Z38.2 - SINGLE LIVEBORN , UNSPECIFIED TO PLACE OF Status: Acute Current Visit: Yes (3) (infant) SNOMED Code(s): 104684068 Code(s): Z78.9 - OTHER SPECIFIED HEALTH STATUS Status: Acute Current Visit: Yes (4) Spontaneous vaginal delivery SNOMED Code(s): 634833048 Code(s): O80 - ENCOUNTER FOR FULL-TERM UNCOMPLICATED DELIVERY Status: Acute Current Visit: Yes - Problem List Review Problem List Initiated/Reviewed/Updated: Yes - My Orders Last 24 Hours: My Active Orders 02/17/20 08:03 Notify Provider Vital Signs [RC] PRN Up ad Radha [RC] ASDIRECTED Sodium Chloride 0.9% [Saline Flush] 10 ml FLUSH ASDIRECTED PRN fentaNYL [Sublimaze] 100 mcg IVPUSH Q1H PRN DVT/VTE Prophylaxis Reflex [OM.PC] Routine Resuscitation Status Routine 02/17/20 08:04 Communication Order [RC] ASDIRECTED Heart Tones [RC] PER UNIT ROUTINE Non Stress Test [RC] Click to Edit Notify Provider [RC] PRN Vital Signs [RC] PER UNIT ROUTINE Saline Lock Insert [OM.PC] Routine 02/17/20 08:06 Antiembolic Devices [RC] .Routine VTE/DVT Education [RC] Click to Edit 02/17/20 12:43 Communication Order [RC] ASDIRECTED Local Anesthetic Infusion Pump [RC] ASDIRECTED PCEA Epidural [RC] ASDIRECTED PCEA Epidural [RC] ASDIRECTED Urinary Catheter Assessment [RC] ASDIRECTED ePHEDrine [ePHEDrine sulfate] 10 mg IVPUSH ASDIRECTED PRN Epidural Catheter Management [OM.PC] Urgent 02/17/20 12:45 Insert Urinary Catheter [OM.PC] ASDIRECTED 02/17/20 13:58 Benzocaine [Srnk-Q-Bgnjvgp 20% [place]] See Dose Instructions TOP Q4H ONE Lanolin [Lansinoh HPA] 1 gm TOP ASDIRECTED ONE witch Renae [Tucks] 1 pad TOP ASDIRECTED ONE 02/17/20 13:59 Patient Status [ADT] Routine Vital Signs [RC] PFP 02/17/20 14:03 Ice Therapy [OM.PC] Per Unit Routine Perineal Care [OM.PC] Per Unit Routine 02/17/20 14:05 Acetaminophen [Tylenol Bulk Bottle] See Dose Instructions PO Q4H PRN Ibuprofen [Motrin Bulk Bottle] 600 mg PO Q6H PRN 02/17/20 Dinner Regular Diet [DIET] 02/18/20 05:11 CBC W/O DIFF,HEMOGRAM [HEME] AM - Assessment Assessment:: 02/17/20 , one , first child, without complications Female , - Plan Plan:: 02/17/20 Term , request for induction, ripe cervix, 39 weeks 2-3/80-0, bishops score 8 reactive nst Plan Miso 50 mcg vaginally this morning AROM when able pain management per patient request monitor for active labor Plan for vaginal delivery 02/17/20 [place]ine [place] [facility] [place] CBC in am 24 hour discharge
[2020-02-17] MEDS ORDERED: Benzocaine 20% Top Spray 56 GM Bottle TOP ONE (14:30)
[2020-02-17] MEDS ORDERED: Witch Hazel Medicated Pads 100/Jar TOP ONE (15:00)
[2020-02-17] MEDS ORDERED: Lanolin 100% Cream 40 GM Tube TOP ONE (15:00)
[2020-02-17] MEDS: Benzocaine 20% Top Spray 56 GM Bottle TOP SCH (18:29)
[2020-02-18] MEDS: Benzocaine 20% Top Spray 56 GM Bottle TOP SCH ×2 (06:25→06:26)
--- NOTE | 2020-02-18 09:26 | PCM.PNPP ---
- General Info Date of Service: 02/18/20 (PPD 1 D/C) Admission Dx/Problem (Free Text): Patient Status Order with Admit Dx/Problem 02/17/20 08:04 Patient Status [ADT] Routine Admission Diagnosis/Problem Admission Diagnosis/Problem Functional Status: Reports: Pain Controlled - Review of Systems General: Reports: No Symptoms HEENT: Reports: No Symptoms Pulmonary: Reports: No Symptoms Cardiovascular: Reports: No Symptoms Gastrointestinal: Reports: No Symptoms Genitourinary: Reports: No Symptoms Musculoskeletal: Reports: No Symptoms Skin: Reports: No Symptoms Neurological: Reports: No Symptoms Psychiatric: Reports: No Symptoms - General Info Date of Service: 02/18/20 - Patient Data Vital Signs - Most Recent: Last Vital Signs Temp 96.4 F L 02/18/20 07:00 Pulse 71 02/18/20 07:00 Resp 16 02/18/20 07:00 BP 99/65 02/18/20 07:00 Pulse Ox 96 02/18/20 07:00 Weight - Most Recent: 136 lb I&O - Last 24 Hours: Intake & Output 02/17/20 02/18/20 02/18/20 22:59 06:59 14:59 Intake Total 600 1600 Balance 600 1600 Lab Results - Last 24 Hours: Laboratory Results - last 24 hr 02/18/20 Range/Units 04:10 WBC 11.7 H (4.5-11.0) K/uL RBC 4.14 (3.30-5.50) M/uL Hgb 12.1 (12.0-15.0) g/dL Hct 36.2 (36.0-48.0) % MCV 87 (80-98) fL MCH 29 (27-31) pg MCHC 33 (32-36) % Plt Count 193 (150-400) K/uL Med Orders - Current: Current Medications Acetaminophen (Tylenol Bulk Bottle) 325 - 650 mg PO Q4H PRN PRN Reason: Pain Last Admin: 02/17/20 14:23 Dose: 325 mg Benzocaine (Slco-B-Fmchtbx 20% [place]) 0 gm TOP Q4H JOSE JUAN Last Admin: 02/18/20 06:26 Dose: Not Given Ibuprofen (Motrin Bulk Bottle) 600 mg PO Q6H PRN PRN Reason: Pain Last Admin: 02/17/20 14:21 Dose: 600 mg Sodium Chloride (Saline Flush) 10 ml FLUSH ASDIRECTED PRN PRN Reason: Keep Vein Open Discontinued Medications Benzocaine (Twxx-D-Kunlcim 20% [place]) 0 gm TOP ONETIME ONE Stop: 02/17/20 14:31 Last Admin: 02/17/20 14:20 Dose: 1 spray Emollient Ointment (Lansinoh Hpa) 0 gm TOP ASDIRECTED ONE Stop: 02/17/20 15:01 Last Admin: 02/17/20 14:19 Dose: 1 applic Ephedrine Sulfate (Ephedrine Sulfate) 10 mg IVPUSH ASDIRECTED PRN PRN Reason: Hypotension Fentanyl (Sublimaze) 100 mcg IVPUSH Q1H PRN PRN Reason: Pain (moderate 4-6) Oxytocin/Sodium Chloride (Pitocin In Ns 20 Units/1,000 Ml) 20 unit in 1,000 mls @ 999 mls/hr IV ASDIRECTED ONE; Protocol Stop: 02/17/20 13:39 Last Titration: 02/17/20 14:10 Dose: 125 mls/hr, 125 mls/hr Lactated Ringer's (Ringers, Lactated) 1,000 mls @ 999 mls/hr IV .BOLUS ONE Stop: 02/17/20 13:43 Last Admin: 02/17/20 13:22 Dose: 999 mls/hr Oxytocin/Sodium Chloride (Pitocin In Ns 20 Units/1,000 Ml) Confirm Administered Dose 20 unit in 1,000 mls @ as directed .ROUTE .STK-MED ONE Stop: 02/17/20 12:49 Last Admin: 02/17/20 14:36 Dose: Not Given Sodium Chloride (Normal Saline) 1,000 mls @ 999 mls/hr IV ASDIRECTED ONE Stop: 02/17/20 13:45 Last Admin: 02/17/20 12:30 Dose: 999 mls/hr Misoprostol (Cytotec) 50 mcg VAG ONETIME ONE Stop: 02/17/20 07:28 Last Admin: 02/17/20 07:55 Dose: 50 mcg Witch Renae (Tucks) 1 pad TOP ASDIRECTED ONE Stop: 02/17/20 15:01 Last Admin: 02/17/20 14:20 Dose: 1 pad - Infant Interaction Infant Disposition, : in Room with Family Interaction: Holding Infant Infant Feeding: Breastfed ; Nursed Well Support Person: - Recovery Exam Fundal Tone: Firm Fundal Level: 1 Fingerbreadths Below Umbilicus Fundal Placement: Midline Lochia Amount: Small Lochia Color: Rubra/Red Perineum Description: Intact, Minimal Bruising/Swelling Episiotomy/Laceration: None Bladder Status: Voiding Urinary Elimination: Voided - Exam General: Alert, Oriented HEENT: Pupils Equal Neck: Supple Lungs: Clear to Auscultation, Normal Respiratory Effort Cardiovascular: Regular Rate, Regular Rhythm GI/Abdominal Exam: Soft, Non-Tender, No Mass, Pelvis Stable Extremities: Normal Inspection, Normal Range of Motion, Non-Tender, No Pedal Edema, Normal Capillary Refill Skin: Warm, Dry, Intact Wound/Incisions: Healing Well Neurological: No New Focal Deficit Psy/Mental Status: Alert, Normal Affect, Normal Mood - Problem List & Annotations (1) Elective induction of labor planned SNOMED Code(s): 415051288 Code(s): WAM6776 - Status: Acute Current Visit: Yes (2) Normal (single liveborn) SNOMED Code(s): 659188933, 766698566, 831246521 Code(s): Z38.2 - SINGLE LIVEBORN , UNSPECIFIED TO PLACE OF Status: Acute Current Visit: Yes (3) (infant) SNOMED Code(s): 005686318 Code(s): Z78.9 - OTHER SPECIFIED HEALTH STATUS Status: Acute Current Visit: Yes (4) Spontaneous vaginal delivery SNOMED Code(s): 739800305 Code(s): O80 - ENCOUNTER FOR FULL-TERM UNCOMPLICATED DELIVERY Status: Acute Current Visit: Yes - Problem List Review Problem List Initiated/Reviewed/Updated: Yes - My Orders Last 24 Hours: My Active Orders 02/17/20 12:43 Epidural Catheter Management [OM.PC] Urgent 02/17/20 12:45 Insert Urinary Catheter [OM.PC] ASDIRECTED 02/17/20 13:59 Patient Status [ADT] Routine Vital Signs [RC] PFP 02/17/20 14:03 Ice Therapy [OM.PC] Per Unit Routine Perineal Care [OM.PC] Per Unit Routine 02/17/20 14:05 Acetaminophen [Tylenol Bulk Bottle] 325 - 650 mg PO Q4H PRN Ibuprofen [Motrin Bulk Bottle] 600 mg PO Q6H PRN 02/17/20 18:00 Benzocaine [Fuaw-L-Gjusiah 20% [place]] 0 gm TOP Q4H 02/17/20 Dinner Regular Diet [DIET] - Assessment Assessment:: 02/17/20 , one , first child, without complications Female , 02/18/20 PPD 1 happy, great mood eating well Flow light, mild cramping no swelling well, little latchinf problems , but not concerned. HGB 12.1 wants to go home - Plan Plan:: 02/17/20 Term , request for induction, ripe cervix, 39 weeks 2-80-0, bishops score 8 reactive nst Plan Miso 50 mcg vaginally this morning AROM when able pain management per patient request monitor for active labor Plan for vaginal delivery 02/17/20 Routine cares MICHELLE garcia CBC in am 24 hour discharge 02/18/20 Home today see me in 8 weeks for a post visit
[2020-02-18 10:40] VITALS: BP 99/55; PULSE 62
== END 2020-02-18 14:40 | disposition home or self-care (01) | DRG 807 ==
LOC: JP.OB 07:04 → OBSVTOIN 13:25 → JP.OB 13:25 → JP.MS 13:33
PROVIDERS: ADMIT Nurse Practitioner Family; ATTEND Nurse Practitioner Family
PROC: 10E0XZZ Delivery of Products of Conception, External Approach (ICD-10-PCS; principal; 2020-02-17)
PROC: 3E0P7VZ Introduction of Hormone into Female Reproductive, Via Natural or Artificial Opening (ICD-10-PCS; 2020-02-17)
DX: O80 Encounter for full-term uncomplicated delivery (principal); Z37.0 Single live birth; Z3A.39 39 weeks gestation of pregnancy
CPT/HCPCS: 36415; 59409; 80305-QW; 81001; 85025; 85027; 99211; A9270-GY; J2590; J7030; J7120